=== PATIENT | female | born 1975 | race Caucasian/White ===

== ENCOUNTER 2020-12-30 22:49 | Emergency (ER) | payer OTHER ==
[2020-12-30 23:30] LABS: HEMOGLOBIN 12.9 gm/dl (12.3-15.3); RED BLOOD COUNT 4.53 M/UL (4.00-5.10); WHITE BLOOD COUNT 9.2 K/UL (4.5-11.0)
[2020-12-31] MEDS ORDERED: OMNICEF 300 MG300 MG PO (04:03)
[2020-12-31] MEDS ORDERED: ZOFRAN ODT 4 MG4 MG PO (04:03)
== END 2020-12-31 05:30 | disposition home or self-care (01) ==
LOC: ER1 22:49
PROVIDERS: Physician Assistant Medical
DX: M25.461 Effusion, right knee (principal); N39.0 Urinary tract infection, site not specified; R45.1 Restlessness and agitation; F17.210 Nicotine dependence, cigarettes, uncomplicated; Z88.0 Allergy status to penicillin; Z88.5 Allergy status to narcotic agent; Z79.899 Other long term (current) drug therapy
CPT/HCPCS: 80053; 81001; 82550; 82553; 83874; 84484; 85025; 93005; 96374; 99283; J0696